=== PATIENT | male | born 1980 | race Caucasian/White ===

== ENCOUNTER 2017-05-29 05:29 | Emergency (ER) | payer OTHER ==
[2017-05-29 05:34] VITALS: BP 153/72
[2017-05-29] MEDS ORDERED: LOSA50TA20 PO (05:38)
[2017-05-29] MEDS ORDERED: predniSONE 20 MG TAB PO ONE (06:45)
[2017-05-29] MEDS ORDERED: AUGMENTIN 875 MG TAB PO ONE (06:45)
[2017-05-29] MEDS ORDERED: PRED20TA PO ×2 (06:47→08:02)
[2017-05-29] MEDS ORDERED: AUGM875T28 PO (06:47)
== END 2017-05-29 07:00 | disposition home or self-care (01) ==
LOC: M ED 05:29
DX: J03.90 Acute tonsillitis, unspecified (principal); F43.10 Post-traumatic stress disorder, unspecified; I10 Essential (primary) hypertension; G47.30 Sleep apnea, unspecified